=== PATIENT | female | born 1995 | race Two or more races ===

== ENCOUNTER 2017-02-05 10:06 | Emergency (ER) | payer OTHER ==
[~2017-02-05 10:06] MED LIST: FLUC200T PO; IBUP-1060 PO; LEVE500T56 PO; OXYC1TAB7 PO
[2017-02-05 10:42] VITALS: BP 157/70
[2017-02-05 10:56] LABS: BILIRUBIN,URINE NEGATIVE (NEG); GLUCOSE,URINE NEGATIVE (NEG); NITRITE,URINE NEGATIVE (NEG); PROTEIN,URINE NEGATIVE (NEG-TRACE); UROBILINOGEN,URINE 0.2 mg/dL (0.2 mg/dL)
--- NOTE | 2017-02-05 11:10 | PHYS DOC ---
Past Medical History Past Medical History: No Pertinent History Past Surgical History: No Surgical History Alcohol Use: None Drug Use: None Adult General Chief Complaint Chief Complaint: ABDOMINAL PAIN HPI HPI Patient is a 21 year old female who presents with nausea and abdominal pain. Pt reports nausea that started yesterday and then had crampy lower abdominal pain that started this morning, caused the patient to need to double over in pain. She has had similar pain in the past when they thought the pt had endometriosis. She's had watery stools and the pain does occur with stools and then resolves. No PCP Review of Systems Review of Systems Constitutional: Denies fever or chills [] Eyes: Denies change in visual acuity, redness, or eye pain [] HENT: Denies nasal congestion or sore throat [] Respiratory: Denies cough or shortness of breath [] Cardiovascular: No additional information not addressed in HPI [] GI: per hpi : Denies dysuria or hematuria [] Musculoskeletal: Denies back pain or joint pain [] Integument: Denies rash or skin lesions [] Neurologic: Denies headache, focal weakness or sensory changes [] Endocrine: Denies polyuria or polydipsia [] Allergies Allergies Allergies Coded Allergies Type Severity Reaction Last Updated Verified No Known Drug Allergies 09/09/15 No Physical Exam Physical Exam Constitutional: Well developed, well nourished, no acute distress, non-toxic appearance. [] HENT: Normocephalic, atraumatic, bilateral external ears normal, oropharynx moist, no oral exudates, nose normal. [] Eyes: PERRLA, EOMI, conjunctiva normal, no discharge. [] Neck: Normal range of motion, no tenderness, supple, no stridor. [] Cardiovascular:Heart rate regular rhythm, no murmur [] Lungs & Thorax: Bilateral breath sounds clear to auscultation [] Abdomen: Bowel sounds normal, soft, no tenderness, no masses, no pulsatile masses.neg mcburneys, no guarding or peritoneal signs Skin: Warm, dry, no erythema, no rash. [] Back: No tenderness, no CVA tenderness. [] Extremities: No tenderness, no cyanosis, no clubbing, ROM intact, no edema. [] Neurologic: Alert and oriented X 3, normal motor function, normal sensory function, no focal deficits noted. [] Psychologic: Affect normal, judgement normal, mood normal. [] Current Patient Data Vital Signs Vital Signs Date Time Temp Pulse Resp B/P (MAP) Pulse Ox O2 Delivery O2 Flow Rate FiO2 02/05/17 10:42 98.5 98 18 157/70 (99) 95 Room Air 98.5 Lab Values Laboratory Tests Test 02/05/17 09:42 02/05/17 10:38 POC Urine HCG, Qualitative Hcg negative (Negative) Urine Collection Type Unknown Urine Color Yellow Urine Clarity Clear Urine pH 7.0 Urine Specific [place] 1.010 Urine Protein Negative mg/dL (NEG-TRACE) Urine Glucose (UA) Negative mg/dL (NEG) Urine Ketones (Stick) Negative mg/dL (NEG) Urine Blood Negative (NEG) Urine Nitrite Negative (NEG) Urine Bilirubin Negative (NEG) Urine Urobilinogen Dipstick 0.2 mg/dL (0.2 mg/dL) Urine Leukocyte Esterase Negative (NEG) Urine RBC 0 /HPF (0-2) Urine WBC 1-4 /HPF (0-4) Urine Squamous Epithelial Cells Mod /LPF Urine Bacteria Few /HPF (0-FEW) EKG EKG [] Radiology/Procedures Radiology/Procedures [] Course & Med Decision Making Course & Med Decision Making Pertinent Labs and Imaging studies reviewed. (See chart for details) labs unremarkable. Pt appears well, care instructions given and pt had not active symptoms here in the ED. Dragon Disclaimer Dragon Disclaimer This electronic medical record was generated, in whole or in part, using a voice recognition dictation system. Departure Departure Impression: Primary Impression: Abdominal pain Additional Impression: Viral diarrhea Disposition: 01 HOME, SELF-CARE Condition: STABLE Referrals: NO PCP (PCP) Scripts Ibuprofen (IBUPROFEN) 800 Mg Tablet 800 MG PO PRN TID Y for PAIN, #20 TAB take with food or milk to avoid upsetting stomach Prov: KATHY LIANG MD 02/05/17 Loperamide Hcl (LOPERAMIDE) 2 Mg Tablet 2 MG PO with each loose stoo, #16 TAB No more than 8 tabs per day. Prov: KATHY LIANG MD 02/05/17 Problem Qualifiers KATHY LIANG MD February 05, 2017 11:10
[2017-02-05 11:25] LABS: BACTERIA,URINE FEW /HPF (0-FEW); RBC,URINE 0 /HPF (0-2); SQUAMOUS EPITHELIAL CELL,UR MOD /LPF
[2017-02-05] MEDS ORDERED: IBUP-1060 PO (12:34)
[2017-02-05] MEDS ORDERED: LOPE2TAB27 PO (12:34)
== END 2017-02-05 12:47 | disposition home or self-care (01) ==
LOC: ER 10:11
DX: A08.4 Viral intestinal infection, unspecified (principal)
CPT/HCPCS: 81001; 81025; 99283

== ENCOUNTER 2017-03-22 15:32 | Emergency (ER) | payer OTHER ==
[~2017-03-22] VITALS: Ht 162.6 cm; Wt 98.0 kg
[~2017-03-22 15:32] MED LIST changes: +LOPE2TAB27 PO
[2017-03-22 15:44] VITALS: BP 127/63
[2017-03-22] MEDS ORDERED: SULF1TAB24 PO (15:53)
--- NOTE | 2017-03-22 15:54 | PHYS DOC ---
Past Medical History Past Medical History: No Pertinent History Past Surgical History: No Surgical History Alcohol Use: None Drug Use: None Adult General Chief Complaint Chief Complaint: INSECT BITE HPI HPI Patient is a 21 year old female who presents with possible insect bite to the left lower extremity that she noted 2 days ago. Patient denies any drainage from the area. Denies any fever. Review of Systems Review of Systems Constitutional: Denies fever or chills [] Eyes: Denies change in visual acuity, redness, or eye pain [] Musculoskeletal: Denies back pain or joint pain [] Integument: possible insect bite to the left lower extremity Neurologic: Denies headache, focal weakness or sensory changes [] Endocrine: Denies polyuria or polydipsia [] Allergies Allergies Allergies Coded Allergies Type Severity Reaction Last Updated Verified No Known Drug Allergies 09/09/15 No Physical Exam Physical Exam Constitutional: Well developed, well nourished, no acute distress, non-toxic appearance. [] Skin: Patient has a 1X1 cm of cellulitis behind her left knee. The area is warm tender to touch but no fluctuance. Back: No tenderness, no CVA tenderness. [] Extremities: No tenderness, no cyanosis, no clubbing, ROM intact, no edema. [] Neurologic: Alert and oriented X 3, normal motor function, normal sensory function, no focal deficits noted. [] Psychologic: Affect normal, judgement normal, mood normal. [] EKG EKG [] Radiology/Procedures Radiology/Procedures [] Course & Med Decision Making Course & Med Decision Making Pertinent Labs and Imaging studies reviewed. (See chart for details) Patient is in the ED with complaints of insect bite behind her left knee. She does have a of cellulitis behind the left knee. This is a small isolated superficial infection not deep into the knee joint. Patient was discharged with Bactrim. Tetanus up-to-date. Warm compresses recommended to the area. Benadryl also recommended. Dragon Disclaimer Dragon Disclaimer This electronic medical record was generated, in whole or in part, using a voice recognition dictation system. Departure Departure Impression: Primary Impression: Cellulitis of left lower extremity Additional Impression: Insect bite Disposition: 01 HOME, SELF-CARE Condition: STABLE Referrals: NO PCP (PCP) Follow-up with your own doctor in one to 2 weeks Patient Instructions: Cellulitis, Insect Bite, [id number] Additional Instructions: You were seen for cellulitis of the left lower extremity. This can of infection occur from insect bite or open area in the skin that gets infected. We will put you on antibiotics for 10 days. Take them as prescribed. Take Zyrtec during the day and Benadryl at night. Follow-up with your doctor in 1-2 weeks. Scripts Sulfamethoxazole/Trimethoprim (BACTRIM DS TABLET) 1 Each Tablet 1 TAB PO BID, #20 TAB Prov: RADHA VIEYRA APRN 03/22/17 Problem Qualifiers Additional Impression: Insect bite Encounter type: initial encounter Qualified Codes: W57.XXXA - Bitten or stung by nonvenomous insect and other nonvenomous arthropods, initial encounter RADHA VIEYRA APRN Mar 22, 2017 15:54
== END 2017-03-22 16:00 | disposition home or self-care (01) ==
LOC: ER 15:32
DX: L03.116 Cellulitis of left lower limb (principal); W57.XXXA Bitten or stung by nonvenomous insect and other nonvenomous arthropods, initial encounter; Y93.89 Activity, other specified; Y92.89 Other specified places as the place of occurrence of the external cause; Y99.8 Other external cause status
CPT/HCPCS: 99283